=== PATIENT | female | born 1935 | race Caucasian/White ===

== ENCOUNTER → 2016-12-09 | Outpatient (CLI) | payer MEDICARE, OTHER ==
[~2016-12-09] MED LIST: ANAS1TAB PO; ATOR20TA9 PO; CHOL10003 PO; CYAN500T2 PO; DABI150C PO; FOLI0.8T2 PO; LEVO150T PO; METO50TA82 PO; MULT-717 PO; OMEG-113 PO; POTA500P26 PO; PYRI100T2 PO; TRIA1TAB3 PO; [UNRECOGNIZED DRUG - CODE] PO
== END | disposition home or self-care (01) ==
LOC: CFH 09:28
PROVIDERS: ATTEND Internal Medicine Cardiovascular Disease
DX: I08.1 Rheumatic disorders of both mitral and tricuspid valves (principal)
CPT/HCPCS: 93306

== ENCOUNTER → 2018-03-11 | Outpatient (CLI) | payer MEDICARE, OTHER ==
[~2018-03-11] MED LIST changes: -OMEG-113 PO; +OMEG-165 PO
== END | disposition home or self-care (01) ==
LOC: CVU 12:24
PROVIDERS: ATTEND Nurse Practitioner Family
DX: I08.1 Rheumatic disorders of both mitral and tricuspid valves (principal); E78.5 Hyperlipidemia, unspecified
CPT/HCPCS: 93306

== ENCOUNTER → 2019-03-21 | Outpatient (CLI) | payer MEDICARE, OTHER ==
[~2019-03-21] MED LIST changes: +ATOR20TA37 PO; -ATOR20TA9 PO; -CYAN500T2 PO; +CYAN500T54 PO
== END | disposition home or self-care (01) ==
LOC: CFH 10:14
PROVIDERS: ATTEND Family Medicine
DX: M85.88 Other specified disorders of bone density and structure, other site (principal); E03.9 Hypothyroidism, unspecified; Z85.3 Personal history of malignant neoplasm of breast
CPT/HCPCS: 77080